=== PATIENT | female | born 1990 | race African-American/Black ===

== ENCOUNTER 2022-04-16 15:13 | Emergency (ER) | payer BC ==
[~2022-04-16] VITALS: Ht 160 cm; Wt 66.0 kg
[2022-04-16] MEDS ORDERED: MORPHINE SULFATE 4 MG/ML CPJ (NOT FOR IM USE) IV STA (19:57)
[2022-04-16] MEDS ORDERED: ONDANSETRON HCL 4MG/2ML INJ IV STA (19:57)
[2022-04-16] MEDS ORDERED: SODIUM CHLORIDE 0.9% 1,000 ML IV ONE (20:00)
[2022-04-16 20:30] LABS: BASOPHILS % 0.7 % (0.0-2.0); EOSINOPHILS % 2.5 % (0.0-5.0); HEMATOCRIT. 41.8 % (36.0-48.0); LYMPHOCYTES % 19.6 % (20.0-50.0); MEAN CORPUSCULAR HEMOGLOBIN 28.7 pg (28.0-32.0); MEAN CORPUSCULAR VOLUME 85.5 fL (81.0-99.0); MEAN PLATELET VOLUME 8.4 fl (7.4-10.4); MONOCYTES % 5.4 % (2.0-8.0); NEUTROPHILS % 71.8 % (40.0-76.0); PLATELET 225 x1000/uL (130-400); RED BLOOD CELL COUNT 4.89 mill/uL (4.2-5.4); RED CELL DISTRIBUTION WIDTH 12.4 % (11.6-14.6)
[2022-04-16 20:33] LABS: CLARITY URINE CLEAR (CLEAR); COLOR URINE YELLOW (YELLOW); KETONES URINE NEGATIVE (NEGATIVE); LEUKOCYTE ESTERASE URINE NEGATIVE (NEGATIVE); NITRITE URINE NEGATIVE (NEGATIVE); OCCULT BLOOD URINE NEGATIVE (NEGATIVE); PH URINE 5.5 (4.5-8.0); PROTEIN URINE NEGATIVE (NEGATIVE); UROBILINOGEN URINE 0.2 E.U./dL (0.2-1.0)
[2022-04-16 20:43] LABS: HCG SCREEN NEGATIVE
[2022-04-16 20:47] LABS: CHLORIDE 105 mEq/L (98-107)
[2022-04-16 20:57] VITALS: BP 128/80
[2022-04-16] MEDS ORDERED: ONDA4TAB11 PO (22:20)
[2022-04-16] MEDS ORDERED: AMOX1TAB16 MT (22:20)
[2022-04-16] MEDS ORDERED: CEFTRIAXONE 1 G PREMIX 50 ML IV ONE (22:30)
[2022-04-16] MEDS ORDERED: IOHEXOL-300 100 ML BOTTLE ONE (22:46)
== END 2022-04-16 22:59 | disposition home or self-care (01) ==
LOC: ER 15:13
DX: K52.9 Noninfective gastroenteritis and colitis, unspecified (principal); Z98.890 Other specified postprocedural states
CPT/HCPCS: 36415; 74177; 80053; 81003; 83605; 83690; 84703; 85025; 85610; 96361; 96365; 96375; 99285; J0696; J2270; J2405; J7030; Q9967